=== PATIENT | female | born 2000 ===

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

== ENCOUNTER 2018-05-16 23:01 | Emergency (ER) | payer OTHER ==
[2018-05-17] MEDS ORDERED: Naproxen 500 MG TAB PO STA (00:11)
[2018-05-17] MEDS ORDERED: Naproxen 500 MG TAB PO ONE (01:02)
--- NOTE | 2018-05-17 01:02 | ED PDOC ---
Arrival/HPI - General Chief Complaint: Hip Pain Time Seen by Provider: 05/17/18 00:03 Historian: Patient - History of Present Illness Time/Duration: 24 hours Context: Slipped Associated Symptoms (Text): 05/17/18 00:59 Jazmyne Pham a 18 year old female, past medical history of seizures, presents to ER with hip pain onset 24 hours ago. Patient reports slipping in the shower, falling on her right side and has been experiencing pain since, though she is able to walk. Patient obtain no other injuries or loss of consciousness. PMD: none provided Past Medical History - Provider Review Nursing Documentation Reviewed: Yes - Infectious Disease Hx of Infectious Diseases: None - Cardiac Hx Hypertension: No - Pulmonary Hx Tuberculosis: No - Neurological Hx Parkinson's Disease: Yes Hx Seizures: Yes - Hematological/Oncological Hx Cancer: No - Musculoskeletal/Rheumatological Other/Comment: HX CLUBBED FOOT - Genitourinary/Gynecological Hx Sexually Transmitted Diseases: No - Psychiatric Hx Substance Use: No - Surgical History Other/Comment: SURGERY RIGHT LOWER LEG Family/Social History Family/Social History: Unknown Family HX Smoking Status: Never Smoked Hx Alcohol Use: No Hx Substance Use: No Allergies/Home Meds Allergies/Adverse Reactions: Allergies No Known Allergies Allergy (Verified 06/17/14 12:16) Review of Systems - Patients Enrolled in [employer] [X]: A conversation was conducted with the primary medical doctor. - Review of Systems Constitutional: Normal Eyes: Normal ENT: Normal Respiratory: Normal Cardiovascular: Normal Gastrointestinal: Normal Genitourinary Female: Normal Musculoskeletal: Other (hip pain) Skin: Normal Neurological: Normal Endocrine: Normal Hemo/Lymphatic: Normal Psychiatric: Normal Physical Exam Vital Signs Temp Pulse Resp BP Pulse Ox 05/16/18 23:15 97.8 F 83 19 94/61 L 98 05/16/18 23:14 97.8 F 94/61 L Temperature: Afebrile Blood Pressure: Normal Pulse: Regular Respiratory Rate: Normal Appearance: Positive for: Well-Appearing, Non-Toxic, Comfortable Pain Distress: None Mental Status: Positive for: Alert and Oriented X 3 - Systems Exam Head: Present: Atraumatic, Normocephalic Pupils: Present: PERRL Extroacular Muscles: Present: EOMI Conjunctiva: Present: Normal Ears: Present: Normal Mouth: Present: Moist Mucous Membranes Respiratory/Chest: Present: Clear to Auscultation, Good Air Exchange. No: Respiratory Distress, Accessory Muscle Use Cardiovascular: Present: Regular Rate and Rhythm, Normal S1, S2. No: Murmurs Abdomen: No: Tenderness, Distention, Peritoneal Signs Back: Present: Normal Inspection Upper Extremity: Present: Normal Inspection. No: Cyanosis, Edema Lower Extremity: Present: Tenderness (lateral hip surface (mild)), Other (focal , no ecchymosis). No: Deformity Medical Decision Making ED Course and Treatment: 05/17/18 01:09 Initial Impression: 18 year old female with hip pain in setting of fall Initial Plan: --Urine --Naproxen 500 mg PO --Radiology hip right Time 01:01 Hip X ray: normal 05/17/18 01:14 Time 01:21 Xray shows no fracture or dislocation of right hip. The patient is stable and was advised to take ibuprofen at home. Diagnosis is right hip contusion. Scribe Attestation: Documented by Payal Randolph, acting as a scribe for Dr.Vikram Jose De Jesus Shah MD. Provider Scribe Attestation: All medical record entries made by the Scribe were at my direction and personally dictated by me. I have reviewed the chart and agree that the record accurately reflects my personal performance of the history, physical exam, medical decision making, and the department course for this patient. I have also personally directed, reviewed, and agree with the discharge instructions and disposition. 05/17/18 01:21 - RAD Interpretation Radiology Orders: 05/17/18 00:10 Hip Right [HIP MIN 2V W/ PELVIS RT] [RAD] Stat - Medication Orders Current Medication Orders: Discontinued Medications Naproxen (Naproxen) 500 mg PO STAT STA Stop: 05/17/18 00:12 Last Admin: 05/17/18 01:03 Dose: 500 mg MAR Pain Assessment Document 05/17/18 01:03 LM (Rec: 05/17/18 01:03 LM [id number]) Pain Reassessment Is this a pain reassessment? No Disposition/Present on Arrival - Disposition Diagnosis: Contusion of hip Patient Problems: Current Active Problems Problem Status Onset Contusion of hip Acute Condition: STABLE Discharge Instructions (ExitCare): Contusion (DC) Forms: [employer] (Y[place]i)
--- NOTE | 2018-05-17 01:37 | ED PDOC ---
Lower Extremity Pain/Injury Time Seen by Provider: 05/17/18 00:03 Chief Complaint (Nursing): Hip Pain Chief Complaint (Provider): Hip pain History Per: Patient History/Exam Limitations: no limitations Onset/Duration Of Symptoms: Hrs (24) Current Symptoms Are (Timing): Still Present Additional Complaint(s): Jazmyne Pham is a 18 year old female, with a past medical history of seizures , who presents to ER with right hip pain onset 24 hours ago. Patient reports slipping in the shower, falling on her right side and has been experiencing pain with ambulation since then although she is able to walk. Patient denies any other injuries, head injury or loss of consciousness. No further medical complaints. PMD: None provided. - Hip Description Of Injury: Fell (in shower) Past Medical History Reviewed: Historical Data, Nursing Documentation, Vital Signs Vital Signs: Last Vital Signs Temp 97.8 F 05/16/18 23:15 Pulse 83 05/16/18 23:15 Resp 19 05/16/18 23:15 BP 94/61 L 05/16/18 23:15 Pulse Ox 98 05/16/18 23:15 - Medical History PMH: Parkinson's Disease, Seizures Denies: Diabetes, Hepatitis, HIV, HTN, Sexually Transmitted Disease - Surgical History Surgical History: No Surg Hx - Family History Family History: States: Unknown Family Hx - Social History Current smoker - smoking cessation education provided: No Alcohol: None Drugs: Denies - Home Medications Home Medications: Ambulatory Orders Medication Instructions Recorded Naproxen [Naprosyn] 500 mg PO Q12H #20 tab 01/17/16 - Allergies Allergies/Adverse Reactions: Allergies Allergy/AdvReac Type Severity Reaction Status Date / Time No Known Allergies Allergy Verified 06/17/14 12:16 Review of Systems ROS Statement: Except As Marked, All Systems Reviewed And Found Negative Musculoskeletal: Positive for: Other (hip pain) Physical Exam - Reviewed Nursing Documentation Reviewed: Yes Vital Signs Reviewed: Yes - Physical Exam Appears: Positive for: Well, Non-toxic, No Acute Distress Head Exam: Positive for: ATRAUMATIC, NORMAL INSPECTION, NORMOCEPHALIC Skin: Positive for: Normal Color, Warm, Dry Eye Exam: Positive for: Normal appearance, EOMI, PERRL Neck: Positive for: Normal, Painless ROM Extremity: Positive for: Normal ROM (able to ambulate), Tenderness (mild surface tenderness to lateral hip). Negative for: Deformity (right hip no ecchymosis), Swelling Neurologic/Psych: Positive for: Alert, Oriented. Negative for: Motor/Sensory Deficits - ECG O2 Sat by Pulse Oximetry: 98 (RA) Pulse Ox Interpretation: Normal Medical Decision Making Medical Decision Making: Time: 00:03 Initial Impression: 18 year old female with hip pain in setting of fall Initial Plan: --Urine --Naproxen 500 mg PO --Radiology hip right Time 01:01 Hip X ray: normal Time 01:21 Xray shows no fracture or dislocation of right hip. The patient is medically stable and was advised to use ibuprofen at home. Diagnosis is right hip contusion. Scribe Attestation: Documented by Payal Randolph, acting as a scribe for Dr.Vikram Jose De Jesus Shah MD. Provider Scribe Attestation: All medical record entries made by the Scribe were at my direction and personally dictated by me. I have reviewed the chart and agree that the record accurately reflects my personal performance of the history, physical exam, medical decision making, and the department course for this patient. I have also personally directed, reviewed, and agree with the discharge instructions and disposition. 05/17/18 01:21 Disposition - Clinical Impression Clinical Impression: Contusion of hip - Disposition Disposition: Routine/Home Disposition Time: 01:21 Condition: STABLE Instructions: Contusion (DC) Forms: [employer] (Telugu)
[2018-05-17 01:47] VITALS: BP 97/56; PULSE 77; RESP 14; TEMP 98.1
[2018-05-17 01:50] VITALS: O2SAT 98
--- NOTE | 2018-05-17 09:52 | RAD ---
PROCEDURE: Right Hip Radiographs. HISTORY: pain/injury COMPARISON: Correlations made to CT scan of the abdomen and pelvis dated 01/17/2016. FINDINGS: BONES: No acute fracture. JOINTS: Normal. SOFT TISSUES: Normal. OTHER FINDINGS: None. IMPRESSION: No demonstrated fracture or dislocation.
== END 2018-05-17 01:40 | disposition home or self-care (01) ==
LOC: H.ER 23:01
DX: S70.01XA Contusion of right hip, initial encounter (principal); W19.XXXA Unspecified fall, initial encounter; Y92.002 Bathroom of unspecified non-institutional (private) residence as the place of occurrence of the external cause; G20 Parkinson's disease